=== PATIENT | female | born 1975 | race African-American/Black ===

== ENCOUNTER 2019-02-10 00:55 | Emergency (ER) | payer OTHER, MEDICAID ==
[~2019-02-10] VITALS: Ht 170.2 cm; Wt 99.8 kg
[2019-02-10 01:06] VITALS: Ht 170.2 cm; Wt 99.8 kg
[2019-02-10 02:10] LABS: BASOPHIL % 0.1 % (0-2); PLATELET COUNT 270 x10^3mcL (130-400); RED CELL DISTRIBUTION WIDTH 14.3 % (11.5-14.5)
[2019-02-10 02:21] LABS: CARBON DIOXIDE 26.8 mmol/L (21-32); CHLORIDE SERUM 108 mmol/L (98-107); CREATININE SERUM 0.9 mg/dL (0.6-1.0); GFR1 > 60 mL/min; GLUCOSE SERUM 136 mg/dL (74-106); POTASSIUM SERUM 4.2 mmol/L (3.5-5.1); SODIUM SERUM 144 mmol/L (136-145)
[2019-02-10 02:35] LABS: ALKALINE PHOSPHATASE 89 U/L (46-116); ALT/SGPT 29 U/L (14-59); AST/SGOT 16 U/L (15-37); BILIRUBIN TOTAL 0.2 mg/dL (0.20-1.00); FREE T4 0.86 ng/dL (0.76-1.46)
[2019-02-10 02:37] LABS: ALBUMIN 3.3 g/dL (3.4-5.0)
[2019-02-10 07:52] LABS: AMPHETAMINE QUAL UR NONE DETECTED (See below)
[2019-02-10 08:10] VITALS: BP 129/92
== END 2019-02-10 08:10 | disposition home or self-care (01) ==
LOC: ED 00:55
PROVIDERS: Emergency Medicine
DX: F25.9 Schizoaffective disorder, unspecified (principal); F17.210 Nicotine dependence, cigarettes, uncomplicated; Z59.0 Homelessness
CPT/HCPCS: 36415; 84439; G0480